=== PATIENT | female | born 1960 | race Caucasian/White ===

== ENCOUNTER → 2016-11-28 | Outpatient (CLI) | payer BC ==
--- NOTE | 2016-11-28 13:08 | DI ---
Indication: ITS.REASON: M54.16 LUMBAR RADICULOPATHY PROCEDURE: MRI LUMBAR SPINE W/O CONTRAST: Encounter: Initial Comparison: Lumbar spine radiographs dated September 17, 2016 Technique: Multiplanar multisequence MR imaging of the lumbar spine was performed without contrast. Findings: Alignment lumbar spine is within normal limits. Small Schmorl's nodes in the inferior endplates of L2 and L3. Probable hemangioma within the T11 vertebra. No acute fracture. Conus medullaris terminates normally at L1-L2. The paraspinal soft tissues are unremarkable. Segmental analysis: L1-L2: Normal L2-L3: Normal L3-L4: Normal L4-L5: Mild degenerative facet disease without focal disk herniation, central canal or neural foraminal stenosis. L5-S1: Tiny central disk protrusion without central canal stenosis. Mild degenerative facet change contributing to mild bilateral neural foraminal narrowing. Impression: Mild degenerative facet disease in the lower lumbar spine with mild neural foraminal narrowing at L5-S1. .
== END ==
LOC: IMA 12:03
PROVIDERS: ATTEND Family Medicine
DX: M47.816 Spondylosis without myelopathy or radiculopathy, lumbar region (principal); M47.817 Spondylosis without myelopathy or radiculopathy, lumbosacral region; M54.5 Low back pain